=== PATIENT | female | born 1950 | race Two or more races ===

== ENCOUNTER 2024-11-12 12:07 | Emergency (ER) | payer OTHER ==
[~2024-11-12] VITALS: Ht 152.4 cm; Wt 74.8 kg
[2024-11-12] MEDS ORDERED: METFORMIN HCL500 M3 (12:47)
[2024-11-12] MEDS ORDERED: VERAPAMIL ER120 MG PO (12:48)
[2024-11-12] MEDS ORDERED: CRESTOR40 MG PO (12:48)
[2024-11-12] MEDS ORDERED: AVALIDE 300-121 EACH PO (12:48)
[2024-11-12] MEDS ORDERED: TETANUS & DIPHTHERIA TOX,ADULT 0.5 ML VIAL IM ONE (15:00)
[2024-11-12] MEDS ORDERED: CLINDAMYCIN PHOSPHATE 150 MG/ML (300mg) IV ONE (15:00)
[2024-11-12] MEDS ORDERED: BACTRIM DS TAB1 EACH PO (15:44)
== END 2024-11-12 16:02 | disposition home or self-care (01) ==
LOC: ER 12:07
DX: L08.9 Local infection of the skin and subcutaneous tissue, unspecified (principal); I10 Essential (primary) hypertension; E11.9 Type 2 diabetes mellitus without complications; Z79.84 Long term (current) use of oral hypoglycemic drugs; Z88.0 Allergy status to penicillin; Z88.5 Allergy status to narcotic agent; Z88.6 Allergy status to analgesic agent
CPT/HCPCS: 90471; 90714; 96365; 99282; J1670; J3490